=== PATIENT | male | born 1955 | race Hispanic/Latino ===

== ENCOUNTER 2017-12-03 11:22 | Outpatient (CLI) | payer BC | END 2017-12-03 11:23 | disposition home or self-care (01) | LOC: BICRAD 11:22 | PROVIDERS: ATTEND Internal Medicine | DX: I10 Essential (primary) hypertension (principal) | CPT/HCPCS: 71046 ==

== ENCOUNTER 2022-07-04 09:55 | Outpatient (CLI) | payer BC, MEDICARE | END 2022-07-04 09:56 | disposition home or self-care (01) | LOC: BICRAD 09:55 | PROVIDERS: ATTEND Nurse Practitioner Family | DX: M25.571 Pain in right ankle and joints of right foot (principal); M93.271 Osteochondritis dissecans, right ankle and joints of right foot ==